=== PATIENT | female | born 1995 | race African-American/Black ===

== ENCOUNTER 2016-11-24 16:49 | Emergency (ER) | payer MEDICAID ==
[~2016-11-24] VITALS: Ht 157.5 cm; Wt 92.0 kg
[2016-11-24 21:41] LABS: BASOPHILS % 0.4 % (0.0-2.0); EOSINOPHILS % 0.1 % (0.0-5.0); HEMATOCRIT. 37.7 % (36.0-48.0); HEMOGLOBIN. 12.3 g/dL (12.0-16.0); LYMPHOCYTES % 32.9 % (20.0-50.0); MEAN CORPUSCULAR HEMOGLOBIN 29.2 pg (28.0-32.0); MEAN CORPUSCULAR VOLUME 89.4 fL (81.0-99.0); MEAN PLATELET VOLUME 7.6 fl (7.4-10.4); MONOCYTES % 4.6 % (2.0-8.0); PLATELET 277 x1000/uL (130-400); RED BLOOD CELL COUNT 4.22 mill/uL (4.2-5.4); RED CELL DISTRIBUTION WIDTH 14.4 % (11.6-14.6)
[2016-11-24 21:47] LABS: CHLORIDE 108 mEq/L (98-107)
[2016-11-24 21:54] LABS: CARBON DIOXIDE 25 mEq/L (21-32)
[2016-11-24 21:58] LABS: B-HCG QUANTITATIVE 20 mIU/mL (<3)
[2016-11-24 22:02] VITALS: BP 117/74
[2016-11-24 23:08] LABS: COLOR URINE BLOODY (YELLOW); GLUCOSE URINE NEGATIVE (NEGATIVE); KETONES URINE 1+ (NEGATIVE); LEUKOCYTE ESTERASE URINE 1+ (NEGATIVE); NITRITE URINE NEGATIVE (NEGATIVE); OCCULT BLOOD URINE 3+ (NEGATIVE); PROTEIN URINE 4+ (NEGATIVE); SPECIFIC GRAVITY URINE 1.028 (1.005-1.030); UROBILINOGEN URINE 0.2 E.U./dL (0.2-1.0)
[2016-11-24 23:09] LABS: CLARITY URINE TURBID (CLEAR)
== END 2016-11-24 23:42 | disposition home or self-care (01) ==
LOC: ER 16:49
DX: O02.1 Missed abortion (principal); N39.0 Urinary tract infection, site not specified; R31.0 Gross hematuria; R03.0 Elevated blood-pressure reading, without diagnosis of hypertension
CPT/HCPCS: 36415; 76801; 76817; 80053; 81001; 84702; 85025; 86850; 86900; 86901; 99285; Z7610